=== PATIENT | male | born 1940 | race Two or more races ===

== ENCOUNTER 2018-12-23 15:27 | Inpatient (IN) | payer MEDICARE, MEDICAID ==
[~2018-12-23] VITALS: Ht 172.7 cm; Wt 77.6 kg
[2018-12-23 15:47] LABS: BASOPHILS # (AUTO) 0.1 /CMM (0.0-0.2); BASOPHILS % (AUTO) 0.9 % (0.0-2.0); EOSINOPHILS % (AUTO) 7.1 % (0.0-6.0); HEMATOCRIT 38 % (39-51); HEMOGLOBIN 12.8 g/dL (13.5-17.5); LYMPHOCYTES # (AUTO) 2.2 /CMM (0.8-4.8); LYMPHOCYTES % (AUTO) 30.2 % (20.0-44.0); MEAN CORPUSCULAR HGB CONC 34 g/dl (31.0-36.0); MEAN CORPUSCULAR VOLUME 92 fL (80-96); MONOCYTES # (AUTO) 0.8 /CMM (0.1-1.30); MONOCYTES % (AUTO) 10.5 % (2.0-12.0); NEUTROPHILS # (AUTO) 3.8 /CMM (1.8-8.9); NEUTROPHILS % (AUTO) 51.3 % (43.0-81.0); PLATELET COUNT (AUTO) 374 /CMM (150-450); RED BLOOD CELL COUNT(AUTO) 4.11 MIL/uL (4.5-6.0); WHITE BLOOD COUNT (AUTO) 7.3 K/uL (4.3-11.0)
--- NOTE | 2018-12-23 15:49 | NUR ---
PT [facility]NELIA FROM [facility] FOR S/I, PT STATES WANTS TO HANG SELF WITH BELT; PT AAOX4, -SOB, NAD NOTED, S/I PRECAUTIONS STARTED, SITTER AT BS, PENDING MD CHÁVEZ
[2018-12-23] MEDS ORDERED: VENL75CA56 PO (15:51)
[2018-12-23] MEDS ORDERED: CELE100C PO (15:51)
[2018-12-23] MEDS ORDERED: METF-440 PO (15:51)
[2018-12-23] MEDS ORDERED: LEVO50TA8 PO (15:51)
[2018-12-23] MEDS ORDERED: INSU100V39 SQ (15:51)
[2018-12-23] MEDS ORDERED: ACET-2605 PO (15:51)
[2018-12-23] MEDS ORDERED: ACET-868 PO ×3 (15:51→15:52)
[2018-12-23] MEDS ORDERED: FERR325T23 PO (15:51)
[2018-12-23] MEDS ORDERED: GABA-534 PO (15:51)
[2018-12-23] MEDS ORDERED: FAMO-131 PO (15:51)
[2018-12-23] MEDS ORDERED: IPRA3AMP23 IH (15:51)
[2018-12-23] MEDS ORDERED: ATOR40TA PO (15:51)
[2018-12-23] MEDS ORDERED: FOLI1TAB16 PO (15:51)
[2018-12-23] MEDS ORDERED: LISI-603 PO (15:51)
[2018-12-23] MEDS ORDERED: MAGN400T26 PO (15:51)
[2018-12-23] MEDS ORDERED: CYAN-51 PO (15:51)
[2018-12-23] MEDS ORDERED: PANT40TA2 PO (15:51)
[2018-12-23] MEDS ORDERED: MULT-447 PO (15:51)
[2018-12-23 15:52] LABS: APPEARANCE,URINE Clear (CLEAR); BILIRUBIN,URINE SMALL (NEGATIVE); BLOOD, URINE Negative Ery/uL (NEGATIVE); COLOR,URINE Yellow (YELLOW); KETONES,URINE Trace (NEGATIVE); LEUKOCYTE ESTERASE ,URINE Negative (NEGATIVE); NITRITE, URINE Negative (NEGATIVE); PH,URINE 5.5 (5.0-8.0); PROTEIN,URINE Negative (NEGATIVE); UGLUCOSE Negative (NEGATIVE)
[2018-12-23 16:00] LABS: ALANINE AMINOTRANSFERASE 25 U/L (12-78); ALBUMIN 3.4 g/dL (3.4-5.0); ALKALINE PHOSPHATASE 62 U/L (46-116); ASPARTATE AMINOTRANSFERASE 18 U/L (15-37); BILIRUBIN,DIRECT 0.1 mg/dL (0.0-0.2); BILIRUBIN,TOTAL 0.2 mg/dL (0.2-1.0); CALCIUM, SERUM 8.8 mg/dL (8.5-10.1); CARBON DIOXIDE 26 mmol/L (21-32); CHLORIDE 105 mmol/L (98-107); CREATININE 1.6 mg/dL (0.6-1.3); GLUCOSE 142 mg/dL (74-106); POTASSIUM 4.7 mmol/L (3.5-5.1); SODIUM SERUM 140 mmol/L (136-145); UREA NITROGEN, BLOOD 29 mg/dL (7-18)
--- NOTE | 2018-12-23 16:00 | NUR ---
CALLED SECURITY, PT WANTED, PT ON HOSPITAL GOWN, ALL BELONGINGS BY NURSES STATION
[2018-12-23 16:03] LABS: ACETAMINOPHEN < 2 ug/ml (10-30); ALCOHOL, BLOOD < 3 mg/dL (0-0); SALICYLATE 0.6 mg/dL (2.8-20.0)
--- NOTE | 2018-12-23 16:11 | NUR ---
AUTO FLEET MANAGER JUSTO HOBSON 1HR
--- NOTE | 2018-12-23 17:57 | NUR ---
REPORT GIVEN TO GREG HART FOR [facility]; PT WILL BE TRANSPORTED TO [facility]
[2018-12-23] MEDS ORDERED: MAGNESIUM HYDROXIDE 30 ML UDC PO PRN (18:30)
[2018-12-23] MEDS ORDERED: LORAZEPAM 0.5 MG TABLET PO PRN (18:30)
[2018-12-23] MEDS ORDERED: ACETAMINOPHEN 325 MG TABLET PO PRN (18:30)
[2018-12-23] MEDS ORDERED: MAG HYDROX/AL HYDROX/SIMETH 30 ML UDC PO PRN (18:30)
[2018-12-23 18:48] VITALS: BP 109/69
--- NOTE | 2018-12-23 18:52 | NUR ---
RN NOTE: PATIENT WAS ADMITTED TO [facility] AT 1830. UPON FACE TO FACE ASSESSMENT, PATIENT'S RIGHTS HANDBOOK GIVEN WITH THE GUIDE TO PRESCRIPTIONS. NO ACUTE DISTRESS NOTED, NO COMPLAINTS. VITAL SIGNS TAKEN. ADMITTING ORDERS INPUT. CARE PLAN COMPLETE. CONSENTS SIGNED. CONTRABANDS CONFISCATED AND SIGNED OFF. PATIENT DENIES SI/HI AT THIS TIME AND STATES THAT IF HE IS HAVING ANY SI, THAT HE WILL INFORM STAFF MEMBERS. WILL ENDORSE TO ONCOMING RN TO COMPLETE THE REST OF ADMISSION.
[2018-12-23 20:01] VITALS: BP 114/64
[2018-12-23] MEDS ORDERED: DEXTROSE 50%-WATER 50 ML DISP.SYRIN IV PRN (20:30)
[2018-12-23] MEDS: ATORVASTATIN 40 MG TABLET PO SCH (21:36)
[2018-12-23] MEDS: BLOOD SUGAR DIAGNOSTIC 1 EACH STRIP IN SCH (21:36)
[2018-12-24 06:40] LABS: CHOLESTEROL 135 mg/dL (<200); HDL CHOLESTEROL 37 mg/dL (40-60); LDL 87 mg/dL (0-99); TRIGLYCERIDES 92 mg/dL (30-150)
[2018-12-24 06:45] LABS: ALANINE AMINOTRANSFERASE 23 U/L (12-78); ALBUMIN 3.1 g/dL (3.4-5.0); ALKALINE PHOSPHATASE 53 U/L (46-116); ASPARTATE AMINOTRANSFERASE 17 U/L (15-37); BILIRUBIN,TOTAL 0.4 mg/dL (0.2-1.0); CALCIUM, SERUM 8.8 mg/dL (8.5-10.1); CARBON DIOXIDE 25 mmol/L (21-32); CHLORIDE 104 mmol/L (98-107); CREATININE 1.3 mg/dL (0.6-1.3); GLUCOSE 109 mg/dL (74-106); POTASSIUM 4.3 mmol/L (3.5-5.1); SODIUM SERUM 138 mmol/L (136-145); TOTAL PROTEIN, SERUM 6.6 g/dL (6.4-8.2); UREA NITROGEN, BLOOD 23 mg/dL (7-18)
[2018-12-24] MEDS: BLOOD SUGAR DIAGNOSTIC 1 EACH STRIP IN SCH ×4 (07:48→21:43)
--- NOTE | 2018-12-24 07:53 | NUR ---
RN NOTE: 0730 BS 103 MG/DL; NO COVERAGE NEEDED.
[2018-12-24 08:00] VITALS: BP 109/61
[2018-12-24] MEDS: LEVOTHYROXINE SODIUM 50 MCG TABLET PO SCH (08:47)
[2018-12-24] MEDS: CELECOXIB 100 MG CAPSULE PO SCH ×2 (08:47→16:55)
[2018-12-24] MEDS: FAMOTIDINE (20 MG) 20 MG TABLET PO SCH (08:48)
[2018-12-24] MEDS: FERROUS SULFATE (325 MG) 325 MG/TAB TABLET PO SCH ×2 (08:48→16:55)
[2018-12-24] MEDS: METFORMIN 500 MG TABLET PO SCH ×2 (08:48→16:55)
[2018-12-24] MEDS: GABAPENTIN 300 MG CAPSULE PO SCH ×2 (08:48→16:55)
[2018-12-24] MEDS: MAGNESIUM OXIDE 400 MG TABLET PO SCH (08:48)
[2018-12-24] MEDS: FOLIC ACID 1 MG TABLET PO SCH (08:48)
[2018-12-24] MEDS: LISINOPRIL (20MG) 20 MG TABLET PO SCH (08:51)
--- NOTE | 2018-12-24 08:51 | NUR ---
RN NOTE: 0900 BP MED HELD FOR BP 109/61
[2018-12-24 16:23] VITALS: BP 94/63
[2018-12-24 20:16] VITALS: BP 107/61
[2018-12-24] MEDS: ATORVASTATIN 40 MG TABLET PO SCH (21:33)
[2018-12-25 08:00] VITALS: BP 118/61
[2018-12-25] MEDS: BLOOD SUGAR DIAGNOSTIC 1 EACH STRIP IN SCH ×4 (08:20→21:15)
[2018-12-25] MEDS: MAGNESIUM OXIDE 400 MG TABLET PO SCH (08:21)
[2018-12-25] MEDS: LEVOTHYROXINE SODIUM 50 MCG TABLET PO SCH (08:21)
[2018-12-25] MEDS: GABAPENTIN 300 MG CAPSULE PO SCH ×2 (08:21→17:14)
[2018-12-25] MEDS: FERROUS SULFATE (325 MG) 325 MG/TAB TABLET PO SCH ×2 (08:21→17:14)
[2018-12-25] MEDS: METFORMIN 500 MG TABLET PO SCH ×2 (08:21→17:14)
[2018-12-25] MEDS: LISINOPRIL (20MG) 20 MG TABLET PO SCH (08:21)
[2018-12-25] MEDS: FAMOTIDINE (20 MG) 20 MG TABLET PO SCH (08:21)
[2018-12-25] MEDS: CELECOXIB 100 MG CAPSULE PO SCH ×2 (08:21→17:14)
[2018-12-25] MEDS: FOLIC ACID 1 MG TABLET PO SCH (08:21)
[2018-12-25] MEDS: SERTRALINE HCL 50 MG TABLET PO SCH (09:51)
--- NOTE | 2018-12-25 12:08 | NUR ---
SIMEON contacted Rosa ([phone]) from [facility] and inquired about whether or not the pt can return to the facility. She stated that she would inform the SW as soon as possible.
[2018-12-25] MEDS: INSULIN REGULAR, HUMAN 100 UNIT/ML 3 ML VIAL SQ PRN (12:11)
--- NOTE | 2018-12-25 12:42 | NUR ---
Initial Discharge Plan: Pt currently resides at [facility] located at [address] [place] [address]; ([phone]). Per pt, he would like to return as soon as possible. SIMEON contacted the facility and is waiting for a response. SIMEON will work with the pt and the MD regarding appropriate discharge planning. SW will form a safe and proper discharge.
--- NOTE | 2018-12-25 12:56 | NUR ---
RN NOTE: 1200 BS 131 MG/DL; 2 UNITS OF INSULIN GIVEN WITH MEAL PER SLIDING SCALE.
[2018-12-25 16:19] VITALS: BP 126/64
[2018-12-25 20:00] VITALS: BP 72/37
[2018-12-25] MEDS: ATORVASTATIN 40 MG TABLET PO SCH (21:16)
[2018-12-25] MEDS: TEMAZEPAM 7.5 MG CAPSULE PO PRN (21:18)
[2018-12-26] MEDS: BLOOD SUGAR DIAGNOSTIC 1 EACH STRIP IN SCH ×4 (07:46→21:08)
[2018-12-26] MEDS: INSULIN REGULAR, HUMAN 100 UNIT/ML 3 ML VIAL SQ PRN ×3 (07:47→17:15)
[2018-12-26 07:50] LABS: BASOPHILS # (AUTO) 0.1 /CMM (0.0-0.2); BASOPHILS % (AUTO) 0.9 % (0.0-2.0); EOSINOPHILS % (AUTO) 6.7 % (0.0-6.0); HEMATOCRIT 39 % (39-51); HEMOGLOBIN 13.1 g/dL (13.5-17.5); LYMPHOCYTES # (AUTO) 1.9 /CMM (0.8-4.8); LYMPHOCYTES % (AUTO) 30.6 % (20.0-44.0); MEAN CORPUSCULAR HGB CONC 34 g/dl (31.0-36.0); MEAN CORPUSCULAR VOLUME 91 fL (80-96); MONOCYTES # (AUTO) 0.9 /CMM (0.1-1.30); MONOCYTES % (AUTO) 13.6 % (2.0-12.0); NEUTROPHILS # (AUTO) 3.1 /CMM (1.8-8.9); NEUTROPHILS % (AUTO) 48.2 % (43.0-81.0); PLATELET COUNT (AUTO) 377 /CMM (150-450); RED BLOOD CELL COUNT(AUTO) 4.29 MIL/uL (4.5-6.0); WHITE BLOOD COUNT (AUTO) 6.4 K/uL (4.3-11.0)
[2018-12-26 07:59] LABS: CALCIUM, SERUM 8.8 mg/dL (8.5-10.1); CARBON DIOXIDE 23 mmol/L (21-32); CHLORIDE 104 mmol/L (98-107); CREATININE 1.2 mg/dL (0.6-1.3); GLUCOSE 96 mg/dL (74-106); MAGNESIUM 1.6 mg/dL (1.8-2.4); PHOSPHORUS 3.3 mg/dL (2.5-4.9); POTASSIUM 4.5 mmol/L (3.5-5.1); SODIUM SERUM 137 mmol/L (136-145); UREA NITROGEN, BLOOD 32 mg/dL (7-18)
[2018-12-26 08:00] VITALS: BP 117/61
[2018-12-26] MEDS: MAGNESIUM OXIDE 400 MG TABLET PO SCH (08:22)
[2018-12-26] MEDS: SERTRALINE HCL 50 MG TABLET PO SCH (08:22)
[2018-12-26] MEDS: CELECOXIB 100 MG CAPSULE PO SCH ×2 (08:22→16:38)
[2018-12-26] MEDS: FAMOTIDINE (20 MG) 20 MG TABLET PO SCH (08:23)
[2018-12-26] MEDS: FOLIC ACID 1 MG TABLET PO SCH (08:23)
[2018-12-26] MEDS: LISINOPRIL (20MG) 20 MG TABLET PO SCH (08:23)
[2018-12-26] MEDS: METFORMIN 500 MG TABLET PO SCH ×2 (08:23→16:38)
[2018-12-26] MEDS: GABAPENTIN 300 MG CAPSULE PO SCH ×2 (08:23→16:38)
[2018-12-26] MEDS: FERROUS SULFATE (325 MG) 325 MG/TAB TABLET PO SCH ×2 (08:23→16:38)
[2018-12-26] MEDS: LEVOTHYROXINE SODIUM 50 MCG TABLET PO SCH (08:24)
[2018-12-26] MEDS ORDERED: MAGNESIUM OXIDE 400 MG TABLET PO ONE (11:00)
--- NOTE | 2018-12-26 11:19 | NUR ---
RN NOTE RECEIVED CALL FROM PHARMACY REGARDING MAGNESIUM LEVEL OF 1.6, PT ONLY RECEIVED 400 MG OF MAGNESIUM OXIDE THIS AM. HOSPITALIST CHAD HAYES PAGED AND ORDER RECEIVED FOR ONE TIME DOSE OF 400 MG PO MAGNESIUM OXIDE, ORDER IMPLEMENTED AND CARRIED OUT
--- NOTE | 2018-12-26 15:52 | NUR ---
GROUP NOTE: SW prompted pt to attend group therapy on this present day but pt refused stating, "I don't need to be here."
[2018-12-26 16:00] VITALS: BP 106/52
--- NOTE | 2018-12-26 19:22 | NUR ---
[facility]PS RN NOTE, RECEIVED PATIENT AWAKE AND IN BED, NO S/S OR COMPLAINTS OF PAIN AT THIS TIME. PATIENT IS DISPLAYING NO S/S OF APPARENT DISTRESS AT THIS TIME. PATIENT BREATHING IS UNLABORED WITH EQUAL RISE AND FALL OF THE CHEST. PATIENT IS ALERT AND ORIENTED X 3 ON ROOM AIR WITH A SPO2 OF 95 %. PATIENT IS MED COMPLAINT, DISORGANIZED, ANXIOUS, COOPERATIVE, DEPRESSED, AND NEEDS REORIENTATION. PATIENT IS REFUSING SKIN ASSESSMENT. PATIENT DENIES SUICIDE AND HOMICIDAL IDEATIONS AT THIS TIME. PATIENT ASSISTED WITH TURNING AND REPOSITIONING Q2HR AND PRN FOR COMFORT AND CIRCULATION. PATIENT HAS NO NEEDS AT THIS TIME. PATIENT EDUCATED ON THE USE OF THE CALL CHOI. PATIENT BED SIDE RAILS ARE UP X 2 FOR SAFETY, BED IS LOCKED, AND LOW WILL CONTINUE TO MONITOR AND MAINTAIN SAFETY.
[2018-12-26 20:07] VITALS: BP 84/45
--- NOTE | 2018-12-26 21:06 | NUR ---
[facility]PS RN NOTE, PERFORMED ACCU CHECK ON PATIENT WITH A BLOOD SUGAR RESULT OF 89. NO INSULIN GIVEN PER SLIDING SCALE. WILL CONTINUE TO MONITOR THIS PATIENT.
[2018-12-26] MEDS: ATORVASTATIN 40 MG TABLET PO SCH (21:39)
[2018-12-27] VITALS (7 sets, daily range): BP systolic 84–128; BP diastolic 47–75
[2018-12-27] MEDS: FOLIC ACID 1 MG TABLET PO SCH (08:55)
[2018-12-27] MEDS: MAGNESIUM OXIDE 400 MG TABLET PO SCH (08:55)
[2018-12-27] MEDS: GABAPENTIN 300 MG CAPSULE PO SCH ×2 (08:55→16:24)
[2018-12-27] MEDS: CELECOXIB 100 MG CAPSULE PO SCH ×2 (08:55→16:24)
[2018-12-27] MEDS: FERROUS SULFATE (325 MG) 325 MG/TAB TABLET PO SCH ×2 (08:55→16:24)
[2018-12-27] MEDS: LEVOTHYROXINE SODIUM 50 MCG TABLET PO SCH (08:55)
[2018-12-27] MEDS: FAMOTIDINE (20 MG) 20 MG TABLET PO SCH (08:55)
[2018-12-27] MEDS: METFORMIN 500 MG TABLET PO SCH ×2 (08:55→16:24)
[2018-12-27] MEDS: BLOOD SUGAR DIAGNOSTIC 1 EACH STRIP IN SCH ×4 (08:56→21:12)
[2018-12-27] MEDS: LISINOPRIL (20MG) 20 MG TABLET PO SCH (09:00)
[2018-12-27] MEDS: SERTRALINE HCL 50 MG TABLET PO SCH (09:01)
--- NOTE | 2018-12-27 09:04 | NUR ---
GREG NOTE: 0900 BP MED HELD D/T BP 97/55
--- NOTE | 2018-12-27 09:11 | NUR ---
RN NOTE: PATIENT'S MBP WAS RE-CHECKED, BP 90/47, 12 OZ OF OJ GIVEN, FLUIDS ENCOURAGED, BED PUT IN REVERSE [place] POSITION. CN AWARE. PATIENT COMPLAINED OF MILD DIZZINESS. WILL MONITOR CLOSELY AND RE-CHECK BP ACCORDINGLY.
--- NOTE | 2018-12-27 11:49 | NUR ---
RN NOTE: PATIENT'S BP REMAINS LOW. 800 ML OF WATER, 8 OZ OF ORANGE JUICE AND 3 PACKETS OF SALTINES. RECHECKED BP AND REMAINS LOW (94/58) AND LATER RECHECKED IS WITH A MANUAL BP CUFF (100/710). PATIENT'S BASELINE IS TYPICALLY LOW. INFORMED DR. PERDOMO OF THE PATIENT'S VALUES. INSTRUCTED TO CONTINUE ENCOURAGING PO FLUIDS AND IF HYPOTENSION WITH DIZZINESS PERSISTS, TO START HIM ON 500 CC NS VIA PERIPHERAL IV. WILL CONTINUE TO MONITOR PATIENT AND INFORM HIM OF ANY CHANGES IN PATIENT'S CONDITION.
--- NOTE | 2018-12-27 14:24 | NUR ---
SIMEON faxed updated notes to [facility] with attention to Rosa to the fax number: [phone].
--- NOTE | 2018-12-27 14:38 | NUR ---
SIMEON conducted a substance abuse intervention with the pt due to his previous history with alcohol abuse.
--- NOTE | 2018-12-27 15:28 | NUR ---
GROUP NOTE: SW prompted pt to attend group therapy on this present day discussing discharge planning but pt refused stating, "I'm not interested."
--- NOTE | 2018-12-27 16:09 | NUR ---
Rosa ([phone]) from [facility] contacted the and stated that the pt is accepted back to their facility.
[2018-12-27] MEDS: ATORVASTATIN 40 MG TABLET PO SCH (21:12)
[2018-12-28 07:16] LABS: BASOPHILS # (AUTO) 0.1 /CMM (0.0-0.2); EOSINOPHILS % (AUTO) 7.5 % (0.0-6.0); HEMATOCRIT 37 % (39-51); HEMOGLOBIN 12.4 g/dL (13.5-17.5); LYMPHOCYTES # (AUTO) 2.1 /CMM (0.8-4.8); LYMPHOCYTES % (AUTO) 33.8 % (20.0-44.0); MEAN CORPUSCULAR HGB CONC 34 g/dl (31.0-36.0); MEAN CORPUSCULAR VOLUME 91 fL (80-96); MONOCYTES # (AUTO) 0.8 /CMM (0.1-1.30); MONOCYTES % (AUTO) 13.5 % (2.0-12.0); NEUTROPHILS # (AUTO) 2.7 /CMM (1.8-8.9); NEUTROPHILS % (AUTO) 44.2 % (43.0-81.0); PLATELET COUNT (AUTO) 375 /CMM (150-450); RED BLOOD CELL COUNT(AUTO) 4.04 MIL/uL (4.5-6.0); WHITE BLOOD COUNT (AUTO) 6.2 K/uL (4.3-11.0)
[2018-12-28 07:36] LABS: CALCIUM, SERUM 8.8 mg/dL (8.5-10.1); CARBON DIOXIDE 24 mmol/L (21-32); CHLORIDE 105 mmol/L (98-107); CREATININE 1.3 mg/dL (0.6-1.3); GLUCOSE 108 mg/dL (74-106); MAGNESIUM 1.7 mg/dL (1.8-2.4); POTASSIUM 4.5 mmol/L (3.5-5.1); SODIUM SERUM 138 mmol/L (136-145); UREA NITROGEN, BLOOD 31 mg/dL (7-18)
[2018-12-28 08:00] VITALS: BP 101/63
[2018-12-28] MEDS: BLOOD SUGAR DIAGNOSTIC 1 EACH STRIP IN SCH ×4 (08:22→21:43)
[2018-12-28] MEDS: LEVOTHYROXINE SODIUM 50 MCG TABLET PO SCH (08:23)
[2018-12-28] MEDS: FAMOTIDINE (20 MG) 20 MG TABLET PO SCH (08:23)
[2018-12-28] MEDS: FERROUS SULFATE (325 MG) 325 MG/TAB TABLET PO SCH ×2 (08:23→17:26)
[2018-12-28] MEDS: MAGNESIUM OXIDE 400 MG TABLET PO SCH (08:24)
[2018-12-28] MEDS: CELECOXIB 100 MG CAPSULE PO SCH ×2 (08:24→17:26)
[2018-12-28] MEDS: SERTRALINE HCL 50 MG TABLET PO SCH (08:24)
[2018-12-28] MEDS: GABAPENTIN 300 MG CAPSULE PO SCH ×2 (08:24→17:26)
[2018-12-28] MEDS: METFORMIN 500 MG TABLET PO SCH ×2 (08:24→17:26)
[2018-12-28] MEDS: FOLIC ACID 1 MG TABLET PO SCH (09:00)
[2018-12-28] MEDS: LISINOPRIL (20MG) 20 MG TABLET PO SCH (09:00)
[2018-12-28] MEDS: MAGNESIUM CHLORIDE 64 MG TABLET.SA PO SCH (12:00)
--- NOTE | 2018-12-28 15:43 | NUR ---
Group Note: SW prompted pt to attend group therapy and he stated that he was not interested.
[2018-12-28 16:00] VITALS: BP 103/59
--- NOTE | 2018-12-28 18:09 | NUR ---
rn notes pt refusing dinner insulin with bs at 149, "stating bs was okay throughout day, it should be fine by tonight." Will cont to monitor.
[2018-12-28 20:10] VITALS: BP 110/60
[2018-12-28] MEDS: ATORVASTATIN 40 MG TABLET PO SCH (21:43)
[2018-12-28] MEDS: TEMAZEPAM 7.5 MG CAPSULE PO PRN (21:43)
[2018-12-29] MEDS: BLOOD SUGAR DIAGNOSTIC 1 EACH STRIP IN SCH ×2 (07:37→11:57)
[2018-12-29 08:00] VITALS: BP 111/60
[2018-12-29] MEDS: MAGNESIUM OXIDE 400 MG TABLET PO SCH (08:08)
[2018-12-29] MEDS: LEVOTHYROXINE SODIUM 50 MCG TABLET PO SCH (08:08)
[2018-12-29] MEDS: FERROUS SULFATE (325 MG) 325 MG/TAB TABLET PO SCH (08:08)
[2018-12-29] MEDS: CELECOXIB 100 MG CAPSULE PO SCH (08:09)
[2018-12-29] MEDS: GABAPENTIN 300 MG CAPSULE PO SCH (08:09)
[2018-12-29] MEDS: METFORMIN 500 MG TABLET PO SCH (08:09)
[2018-12-29] MEDS: FAMOTIDINE (20 MG) 20 MG TABLET PO SCH (08:09)
[2018-12-29 08:10] VITALS: BP 111/60
[2018-12-29] MEDS: LISINOPRIL (20MG) 20 MG TABLET PO SCH (08:10)
[2018-12-29] MEDS: FOLIC ACID 1 MG TABLET PO SCH (08:10)
[2018-12-29] MEDS: SERTRALINE HCL 50 MG TABLET PO SCH (08:10)
[2018-12-29] MEDS: MAGNESIUM CHLORIDE 64 MG TABLET.SA PO SCH (09:00)
--- NOTE | 2018-12-29 11:38 | NUR ---
SS Group Goal: Patient will attend group being held today from 10am -10:30 in the activities room and participate and/or actively listen to peers and be respectful. Intervention: SW invited patient to attend group session with peers regarding their support system. SW respected patient�s self-determination and will continue to invite patient to group. Response: Patient declined to participate in today�s group medical social worker session. Plan: Patient will be invited to attend next medical social worker group session held.
--- NOTE | 2018-12-29 12:00 | NUR ---
SIMEON faxed updated notes to [facility] with attention to Rosa to the fax number: [phone].
--- NOTE | 2018-12-29 12:06 | NUR ---
PT. WITH PC HEARING TODAY REPRESENTED BY HEARING REFEREE, ADVOCATE AND HOSPITAL STAFF. THE PT., AFTER TALKING WITH THE ADVOCATE, HAS DECIDED TO: BE PRESENT AT THE CERTIFICATION REVIEW HEARING. AFTER CONSIDERING ALL THE EVIDENCE PRESENTED, THE HEARING REFEREE FINDS THAT: THERE IS NOT PROBABLE CAUSE TO BELIEVE THAT THE PERSON, A RESULT OF A MENTAL DISORDER IS A DANGER TO SELF, A DANGER TO OTHERS, OR IS GRAVELY DISABLED. THE PT. MUST BE RELEASED OR REMAIN AT THE FACILITY VOLUNTARILY AND PT. WANTED TO BE DISCHARGED. Hayley LEVY MADE AWARE AND ORDERED TO DISCHARGE PT. [facility] AND TO CONTINUE SAME INCLUDING PRN. Addendum: 12/29/18 at 1224 by JOSE BRIGHT RN PT. WITHOUT DISTRESS, DENIES SUICIDAL AND HOMICIDAL. BELONGINGS READY AND DISCHARGE PAPERS READY. CHAD HAYES MADE AWARE OF THE DISCHARGE AND RECONCILED MEDS.
--- NOTE | 2018-12-29 14:04 | NUR ---
PT. SIGNED THE DISCHARGE PAPERS, BELONGINGS READY AND REPORT GIVEN TO [facility].
--- NOTE | 2018-12-29 15:00 | NUR ---
Pt. left the unit via ambulance and transported via gurney with belongings. Left without distress and on stable condition. V/S taken: BP 94/58, TN 82, RR 18, temp 98.0 and oxygen sat 96%.
--- NOTE | 2018-12-29 15:26 | NUR ---
Discharge Note: Pt was discharged to [facility] located at [address] [place] [id number]; ([phone]). Pt was transported via [facility] at 3pm. There was no one to inform about this discharge. Upon discharge, the pt appeared to be in a euthymic mood and presented with a content affect. Pt denied both suicidal and homicidal ideation as well as auditory and visual hallucinations. Pt will continue to be under the care of his psychiatrist, Dr. Taveras, located at [facility] [address], [place] [address]; and his machine marker, Dr. Cortez, located at [address] [facility], [address] [place] [address]; .
== END 2018-12-29 15:00 | DRG 885 ==
LOC: ER 15:30 → GPS 17:31
PROVIDERS: ADMIT Psychiatry & Neurology Psychiatry; ATTEND Family Medicine
DX: F33.9 Major depressive disorder, recurrent, unspecified (principal); N17.0 Acute kidney failure with tubular necrosis; E11.65 Type 2 diabetes mellitus with hyperglycemia; E44.1 Mild protein-calorie malnutrition; J98.11 Atelectasis; R45.851 Suicidal ideations; Z86.73 Personal history of transient ischemic attack (TIA), and cerebral infarction without residual deficits; E03.9 Hypothyroidism, unspecified; Z91.5 Personal history of self-harm; E78.5 Hyperlipidemia, unspecified; E11.51 Type 2 diabetes mellitus with diabetic peripheral angiopathy without gangrene; D64.9 Anemia, unspecified; I10 Essential (primary) hypertension; Z85.118 Personal history of other malignant neoplasm of bronchus and lung; Z79.4 Long term (current) use of insulin; Z79.899 Other long term (current) drug therapy; Z79.84 Long term (current) use of oral hypoglycemic drugs; K21.9 Gastro-esophageal reflux disease without esophagitis; I70.0 Atherosclerosis of aorta
CPT/HCPCS: 36415; 71045-TC; 80048-TC; 80053-TC; 80061-TC; 80076-TC; 80305; 81000-TC; 82962-TC; 83735-TC; 84100-TC; 85025-TC; 87081-TC; G0480; J1815